=== PATIENT | female | born 1945 | race Caucasian/White ===

== ENCOUNTER 2019-05-05 06:19 | Day surgery (SDC) | payer BC ==
[~2019-05-05 06:19] MED LIST: Acetaminophen TAB* 325 MG PO PRN; Buffered Lidocaine 1% SYRIN* 1 ML/SYRINGE INTRADERM ONE
[2019-05-05] MEDS ORDERED: Midazolam* 1 MG/ML 2 ML VIAL (2 MG) ONE (07:37)
[2019-05-05] MEDS ORDERED: fentaNYL* 50 MCG/ML 2 ML VIAL (100 MCG VIAL) ONE (07:37)
[2019-05-05 08:36] VITALS: BP 131/79
[2019-05-05] MEDS ORDERED: acetaZOLAMIDE TAB* 250 MG ONE (09:43)
[2019-05-05] MEDS ORDERED: Neomycin/Polymy/Dex OPTH.SUSP* MAXITROL 0.1% 5 ML ONE (09:43)
[2019-05-05] MEDS ORDERED: Lidocaine 2% w/ EPI 1:200,000* 20 ML SDV VIAL ONE (09:43)
[2019-05-05] MEDS ORDERED: Cyclopentolate 1% OPTH.SOL* 2 ML BTL ONE (09:43)
[2019-05-05] MEDS ORDERED: Lidocaine 1% MPF ** 5 ML VIAL ONE (09:43)
[2019-05-05] MEDS ORDERED: Proparacaine 0.5% OPHTH.SOL* 15 ML BTL ONE (09:44)
[2019-05-05] MEDS ORDERED: Phenylephrine OPHTH SOL 2.5%* 2 ML ONE (09:44)
[2019-05-05] MEDS ORDERED: Povidone Iodine 5% OPTH* 30 ML BTL ONE (09:44)
[2019-05-05] MEDS ORDERED: Ketorolac 0.5% OPHTH (NF) 0.5 % 5 ML BTL ONE (09:44)
--- NOTE | 2019-05-05 09:51 | OP ---
OPERATIVE REPORT: DATE OF OPERATION: 05/05/19 DATE OF : 49 SURGEON: Vivek Parker M.D. PREOPERATIVE DIAGNOSIS: Cataract, right eye. POSTOPERATIVE DIAGNOSIS: Cataract, right eye. OPERATIVE PROCEDURE: Extracapsular cataract extraction with intraocular lens implant, right eye. PROCEDURE: The patient was brought to the operating room after being given 1/2% Alcaine with epineph rine drops in the preoperative area. The eye was prepped and draped in the usual sterile fashion. S terile drape and eyelid speculum were placed. Again, topical 1/2% Alcaine with epinephrine was given . A paracentesis incision was made at the 9 o'clock position with the No.75 blade. Clear cornea inc ision 2.2 x 2.2-mm was created at the 12 o'clock position starting at the anterior limbus using the 2 .2-mm keratome. The anterior chamber was irrigated with 0.4 mL of 1% non-preservative intracameral l idocaine and filled with DisCoVisc. A capsulorrhexis was completed using the cystotome and the Utrat a forceps. Hydrodissection was performed with balanced salt solution. The lens nucleus was removed w ith the Phacoemulsification handpiece without incident. Cortex was removed with the irrigation-aspir ation handpiece. The capsular bag was re-inflated using DisCoVisc and an SN6AT3 20.5 implant was ins erted with the shooter oriented to the 175-degree meridian. Horizontal reference cardoso are made with the patient seated in the preoperative area. All measurements were confirmed with ORA. The irrigat ion-aspiration handpiece was used to remove all residual DisCoVisc. The eye was refilled with balanc ed salt solution and the wound checked and found to be watertight. Topical Maxitrol drops were given . [id number]/[facility] #: [id number]
== END 2019-05-05 08:20 | disposition home or self-care (01) ==
LOC: OREAST 06:19
PROVIDERS: ATTEND Specialist
DX: H25.811 Combined forms of age-related cataract, right eye (principal); H35.371 Puckering of macula, right eye; K21.9 Gastro-esophageal reflux disease without esophagitis; E78.00 Pure hypercholesterolemia, unspecified
CPT/HCPCS: A9270-GY; J2250; J3010; V2787

== ENCOUNTER 2019-05-12 06:28 | Day surgery (SDC) | payer BC, MEDICARE ==
[2019-05-12] MEDS ORDERED: Midazolam* 1 MG/ML 5 ML VIAL (5 MG) ONE (07:30)
[2019-05-12] MEDS ORDERED: fentaNYL* 50 MCG/ML 2 ML VIAL (100 MCG VIAL) ONE (07:30)
[2019-05-12 08:33] VITALS: BP 104/80
--- NOTE | 2019-05-12 09:55 | OP ---
DATE OF OPERATION: 05/12/2019. DATE OF : 1945. SURGEON: Vivek Parker M.D. PREOPERATIVE DIAGNOSIS: Cataract left eye. POSTOPERATIVE DIAGNOSIS: Cataract left eye. OPERATIVE PROCEDURE: Extracapsular cataract extraction with intraocular lens implant left eye. PROCEDURE: The patient was brought to the operating room after being given 1/2% Alcaine with epineph rine drops in the preoperative area. The eye was prepped and draped in the usual sterile fashion. S terile drape and eyelid speculum were placed. Again, topical 1/2% Alcaine with epinephrine was given . A paracentesis incision was made at the 3 o'clock position with the No.75 blade. Clear cornea inc ision 2.2 x 2.2-mm was created at the 6 o'clock position starting at the anterior limbus using the 2. 2-mm keratome. The anterior chamber was irrigated with 0.4 mL of 1% non-preservative intracameral li docaine and filled with DisCoVisc. A capsulorrhexis was completed using the cystotome and the Utrata forceps. Hydrodissection was performed with balanced salt solution. The lens nucleus was removed wi th the Phacoemulsification handpiece without incident. Cortex was removed with the irrigation-aspira tion handpiece. The capsular bag was re-inflated using DisCoVisc and an SN6AT3 20 implant was insert ed with the shooter, oriented to the 17 degree meridian. All measurements were confirmed with ORA. The irrigation- aspiration handpiece was used to remove all residual DisCoVisc. The eye was refilled with balanced salt solution and the wound checked and found to be watertight. Topical Maxitrol drop s were given. [id number]/[facility] #: [id number]
[2019-05-12] MEDS ORDERED: Lidocaine 1% MPF ** 5 ML VIAL ONE (14:55)
[2019-05-12] MEDS ORDERED: Cyclopentolate 1% OPTH.SOL* 2 ML BTL ONE (14:55)
[2019-05-12] MEDS ORDERED: acetaZOLAMIDE TAB* 250 MG ONE (14:55)
[2019-05-12] MEDS ORDERED: Lidocaine 2% w/ EPI 1:200,000* 20 ML SDV VIAL ONE (14:55)
[2019-05-12] MEDS ORDERED: Phenylephrine OPHTH SOL 2.5%* 2 ML ONE (14:56)
[2019-05-12] MEDS ORDERED: Neomycin/Polymy/Dex OPTH.SUSP* MAXITROL 0.1% 5 ML ONE (14:56)
[2019-05-12] MEDS ORDERED: Ketorolac 0.5% OPHTH (NF) 0.5 % 5 ML BTL ONE (14:56)
[2019-05-12] MEDS ORDERED: Povidone Iodine 5% OPTH* 30 ML BTL ONE (14:56)
[2019-05-12] MEDS ORDERED: Proparacaine 0.5% OPHTH.SOL* 15 ML BTL ONE (14:56)
== END 2019-05-12 08:20 | disposition home or self-care (01) ==
LOC: OREAST 06:28
PROVIDERS: ATTEND Specialist
DX: H25.812 Combined forms of age-related cataract, left eye (principal); H35.371 Puckering of macula, right eye; E78.00 Pure hypercholesterolemia, unspecified; K21.9 Gastro-esophageal reflux disease without esophagitis; H40.059 Ocular hypertension, unspecified eye
CPT/HCPCS: A9270-GY; J2250; J3010; V2787